=== PATIENT | female | born 1965 | race Caucasian/White ===

== ENCOUNTER → 2020-09-20 | Outpatient (CLI) | payer OTHER ==
[~2020-09-20] MED LIST: LORA10CA PO; MULT-245 PO
== END ==
LOC: LAB 10:05
PROVIDERS: ATTEND Nurse Anesthetist, Certified Registered
DX: Z01.812 Encounter for preprocedural laboratory examination (principal); Z20.828 Contact with and (suspected) exposure to other viral communicable diseases
CPT/HCPCS: U0003

== ENCOUNTER → 2020-09-24 | Day surgery (SDC) | payer OTHER ==
[~2020-09-24] MED LIST changes: +BUPIVACAINE-EPI 0.25%-1:200000 MPF 30 ML VIAL. ONE
--- NOTE | 2020-09-24 12:15 | DISCH ---
DISCHARGE INSTRUCTIONS-DC Condition on Discharge Condition on Discharge: Stable Activity after Discharge Activity Instructions for Disc: No restrictions Other activity instructions: MAY SHOWER IN 24 HOURS Diet after Discharge Diet after Discharge: Regular Contacting the DRBerta after DC Call your doctor for: If your condition worsens Follow-Up Follow up with: DR VARELA IN 2 WEEKS DAYLIN VARELA MD Sep 24, 2020 12:15
[2020-09-24 12:20] VITALS: BP 130/68
--- NOTE | 2020-09-26 08:43 | PDOC4 ---
Operative Report DATE September 24, 2020 Preop Diagnosis Mass on the back Post-op Diagnosis Same Operation Performed Excision of back mass Patient is a 55-year-old female was describing a mass on her back that is been enlarging in size and somewhat painful at times. Procedure of excision was explained to the patient detail was benefits were also discussed including bleeding infection alternatives to this procedure also discussed with the patient who seemed to understand and gave a verbal written consent to have the procedure performed. Patient was taken to the minors room placed in the prone positioning area over the mass was prepped and draped usual sterile fashion using ChloraPrep. An area over the mass was then injected with quarter percent Marcaine with epinephrine once this was in anesthetized and incision was made with 15 blade scalpel is carried down through the subcutaneous tissue using Metzenbaum scissors to excise sharply the mass which appeared to be a lipoma. The wound was then closed in a single layer of 4-0 subcuticular Monocryl Mastisol Steri-Strips and island dressing were applied. Patient tolerated procedure well was discharged home in stable condition all sponge instrument needle counts listed as correct estimated blood loss 10 mL Surgeon Jose Maria ANESTHESIA PROPOSED: LOCAL Blood Loss 10 mL Specimen Mass from the back Complications None DAYLIN VRAELA MD Sep 26, 2020 08:43
--- NOTE | 2020-09-27 18:13 | PATHOLOGY ---
[facility] Accession Number: [id number] . 01 Material submitted: . back - LIPOMA LEFT UPPER BACK. Modifiers: left, upper . 02 Diagnosis: Fibroadipose tissue left upper back lesion excision: - Lipoma. (JPM:ashley; 09/27/2020) QMS 09/27/2020 1526 Local . 02 Electronically signed: . Victoriano Cotton MD, Pathologist NPI- [id number] . 01 Gross description: . Received in formalin labeled "Sharron Reed, left upper back lipoma" is a yellow-webber lobulated soft tissue mass measuring 5.3 x 4.5 x 2.0 cm. The external surface is inked black. The specimen is sectioned to reveal a yellow-webber homogeneous cut surface without hemorrhage or necrosis. Plug Maker tissue is submitted in cassettes A1-A3. ([facility]; 09/26/2020) [facility] 09/26/2020 1200 Local . 02 Pathologist provided ICD-10: D17.1 . 02 CPT . 291349 Specimen Comment: A courtesy copy of this report has been sent to [phone], [phone] Specimen Comment: [id number] Specimen Comment: Report sent to / DR SENA Performed at: 01 [facility] [address], [place] [id number] MD David Plummer MD Phone: [phone] Performed at: 02 [facility] [address] [place], [place] [id number] MD Victoriano Cotton MD Phone: [phone]
== END | disposition home or self-care (01) ==
LOC: SURG 10:57
PROVIDERS: ATTEND Surgery
DX: R22.2 Localized swelling, mass and lump, trunk (principal); D17.1 Benign lipomatous neoplasm of skin and subcutaneous tissue of trunk; Z88.8 Allergy status to other drugs, medicaments and biological substances; Z79.899 Other long term (current) drug therapy
CPT/HCPCS: 21931; J3490